=== PATIENT | female | born 1990 | race Caucasian/White ===

== ENCOUNTER 2016-09-29 11:41 | Emergency (ER) | payer SELFPAY ==
--- NOTE | ~2016-09-29 | ER ---
PATIENT'S NAME: MICAH LONGORIA [facility] AGE: 26 Y [address] ROOM: [place] [address] LOCATION: ED ADMIT DATE: 09/29/2016 ER/Outpatient Report DISCHARGE DATE: 09/29/2016 FAMILY PHYSICIAN: Terrance Wakefield MD ATTENDING PHYSICIAN: Garrison Madden Time of Arrival: 1147. Time of Exam: 12 noon. CHIEF COMPLAINT: Left eye pain. HISTORY OF PRESENT ILLNESS: The patient states that she started noticing redness and irritation of her left inner eye area last 09/23/2016. Denies any injury to the eye. It feels like there is something behind her eyes. She has had some blurred vision, increased discomfort in the last 24 hours. She does not wear contact lenses, is supposed to wear glasses, but does not wear them on a regular basis. ALLERGIES: NO KNOWN ALLERGIES. CURRENT MEDICATIONS: No current medications. PAST MEDICAL HISTORY: Benign. PAST SURGICAL HISTORY: Negative. SOCIAL HISTORY: She smokes 1 to 2 cigarettes per day. Drinks alcohol on a social basis. Denies use of drugs. REVIEW OF SYSTEMS: Negative other than those mentioned in the HPI. PHYSICAL EXAMINATION: VITAL SIGNS: She weighed 52 kg. Blood pressure was 107/67, pulse is 66, respirations 20, temperature of 98 tympanic, O2 saturation is 99% on room air. HEENT: Her visual acuity was 20/70 right, 20/70 left, and 20/80 both uncorrected. Pupils are equal and reactive to light. Extraocular movement is intact. The patient does have some redness of the left eye, the medial PATIENT'S NAME: MICAH LONGORIA [facility] AGE: 26 Y [address] ROOM: [place] [address] LOCATION: ED ADMIT DATE: 09/29/2016 ER/Outpatient Report DISCHARGE DATE: 09/29/2016 FAMILY PHYSICIAN: Terrance Wakefield MD ATTENDING PHYSICIAN: Garrison Madden corneal area. GENERAL: She is awake, alert, and oriented x4. SKIN: [place], warm, and dry. RESPIRATIONS: Even and nonlabored. Lungs sounds are clear throughout. HEART: Regular rate and rhythm. EMERGENCY ROOM COURSE: Eye was stained with fluorescein stain. Just shows irritation of the medial corneal area. Eye was then rinsed with saline. Upper lid was examined, shows irritation and redness. No foreign object is seen. Eye funduscopic exam is grossly intact. The patient does have a small bleb to the left cornea also. No drainage from that is seen. IMPRESSION: Corneal abrasion. PLAN: A prescription was written for erythromycin ointment. She is to do eye rest, Tylenol or ibuprofen for pain. If she continues to have eye problems in the next 24-48 hours, she is to follow up with an eye doctor. She verbalized understanding. REMEDIOS SALOMON APRN FOR DO TOMMY SPEARS/navjot /[id number] d: 09/29/162110 t: 10/02/16 0206, OUTPATIENT REPORT
[~2016-09-29 11:41] MED LIST: DERMOPLAST SPRA56 GM TOP; FEOSOL325 MG PO; MOTRIN800 MG PO; PRENATAL 1+1)(P1 TAB PO; SURFAK240 MG PO
== END 2016-09-29 12:19 | disposition disaster alternative care site (69) ==
LOC: GMED 11:41
DX: S05.02XA Injury of conjunctiva and corneal abrasion without foreign body, left eye, initial encounter (principal); F17.210 Nicotine dependence, cigarettes, uncomplicated; X58.XXXA Exposure to other specified factors, initial encounter